=== PATIENT | male | born 1965 | race Caucasian/White ===

== ENCOUNTER 2019-09-30 10:28 | Day surgery (SDC) | payer MEDICARE, SELFPAY ==
[2019-09-29 15:05] VITALS: BMI 27.1
--- NOTE | 2019-09-30 | SCC_ITS ---
Procedure Done: Incision and debridement with removal of deep foreign body left foot. 3 seconds of fluoroscopic guidance, for a cumulative dose of 0.1 mGy, was provided to Dr. Bhatia by the radiology department. C-arm images of the LEFT toe were saved for the patient's permanent record. MAYNOR
[2019-09-30 10:46] VITALS: BP 123/77; PULSE 70; RESP 18; TEMP 36.1; O2SAT 98
[2019-09-30] MEDS: sodium chloride 0.9% 1,000 ML 100 ML IV (11:00)
--- NOTE | 2019-09-30 11:09 | P.HPUD_ITS ---
Surgery/Procedure H&P Update DATE OF PROCEDURE: September 30, 2019 DATE H&P PERFORMED: 09/29/19 H&P UPDATE INFORMATION: I have reviewed H&P completed within last 30 days, I have examined patient prior to procedure, No changes to prior documentation and H[place] is in [facility] [place] PREOP DIAGNOSIS: Open fracture with deep foreign body left foot PLANNED PROCEDURE: Operation Date: 09/30/19 13:35 Proposed Procedures p Incision And Debridement 23706 S91.342A(Left) - Robson Bhatia DPM s Foreign Body Removal Deep(Left) - Robson Bhatia DPM
--- NOTE | 2019-09-30 11:14 | ANES.PREANE2 ---
Pre-Anesthetic Assessment Pre-Anesthetic Assessment: Height/Weight: Height 1.83 m Weight 90.718 kg Temp Pulse Resp BP Pulse Ox 97 F L 70 18 123/77 98 09/30/19 10:46 09/30/19 10:46 09/30/19 10:46 09/30/19 10:46 09/30/19 10:46 Preop Diagnosis: Open fracture with deep foreign body left foot Proposed Procedure: Operation Date: 09/30/19 13:35 Proposed Procedures p Incision And Debridement 73517 S91.342A(Left) - Robson Bhatia DPM s Foreign Body Removal Deep(Left) - Robson Bhatia DPM Last intake: Intake Last Liquid Date 09/29/19 Last Liquid Time 22:00 Last Solid Date 09/29/19 Last Solid Time 22:00 Social: Social History: Alcohol and Tobacco Exam: Pre-Anes Outpt Exam: alert, oriented x 3, clear to auscultation bilaterally and regular rate & rhythm Airway: Submandibular: WNL Cervical ROM: WNL MP: 2 Dentition: Other (poor) History/ROS: No significant history except as noted Pulmonary: Pulmonary: None reported CV/HEM: CV/HEM: CAD (stent placed 1 year ago), DVT, HTN and CA : Comments: One kidney Hepatic: Hepatic: None reported GI: GI: GERD (occ) Metabolic: Metabolic: Hyperlipidemia and None reported Musc/skel: Musc/skel: None reported Neuropsych: Neuropsych: Anxiety and Depression Anesthetic Plan: ASA status: 3 Anesthesia: Anesthesia Evaluation and MAC Risk of > 500 ml blood loss (7ml/kg in children): No Meds/Allergies Current Medications: Current Medications Generic Name Dose Route Start Last Admin Trade Name Freq PRN Reason Stop Dose Admin Sodium Chloride 1,000 mls @ 100 m ls/hr 09/30/19 07:15 09/30/19 11:00 Sodium Chloride 0.9% IV 10/01/19 07:14 100 mls/hr .Q10H MIHAI Administration PFSH Anesthesia PFSH: Medical History (Updated 09/29/19 @ 15:21 by Robson Bhatia DPM) Alcohol abuse Allergic rhinitis Chronic back pain Degeneration of lumbar or lumbosacral intervertebral disc DVT (deep venous thrombosis) UCHE (generalized anxiety disorder) History of deviated nasal septum Hypertension Marijuana abuse Myocardial infarct, old Positive urine drug screen Tobacco abuse Surgical History History of back surgery History of cholecystectomy Family History (Updated 09/29/19 @ 10:46 by Katherine Mathews LPN) Other Cancer Denies family history of Diabetes Social History (Updated 09/29/19 @ 10:47 by Katherine Mathews LPN) Smoking and tobacco status: current every day smoker Household members: spouse Marital status: Current occupational status: disabled Data Anesthesia Cardiac Studies: No Data to Display
[2019-09-30 11:21] LABS: Basophils # 0.1 10^3/uL (0.0-0.1); Basophils % 1.4 %; Eosinophils # 0.3 10^3/uL (0.0-0.8); Eosinophils % 4.2 %; Hematocrit 45.9 % (42.0-52.0); Hemoglobin 14.9 g/dL (11.7-16.6); Lymphocytes # 1.4 10^3/uL (0.8-4.8); Lymphocytes % 19.9 %; Mean Corpuscular HGB Conc 32.5 g/dL (30.0-36.0); Mean Corpuscular Hemoglobin 31.6 pg (28.0-34.0); Mean Corpuscular Volume 97.5 fL (80-94); Mean Platelet Volume 11.7 fL (7.4-10.4); Monocytes # 0.8 10^3/uL (0.2-0.9); Neutrophils # 4.4 10^3/uL (1.8-7.7); Neutrophils % 63.1 %; Nucleated Red Blood Cells % 0 %; Platelet Count 203 10^3/cmm (130-400); Red Blood Count 4.71 10^6/uL (4.1-5.3); Red Cell Distribution Width 12.1 % (12.1-15.1); White Blood Count 6.9 10^3/uL (4.0-10.0)
[2019-09-30] MEDS: clindamycin 600 MG/50 ML PREMIX 100 MG IV (11:27)
[2019-09-30 11:49] LABS: Anion Gap 17.6 (5-19); Blood Urea Nitrogen 7 mg/dL (6-20); Calcium 9.5 mg/dL (8.5-10.5); Carbon Dioxide 24 mmol/L (22-29); Chloride 102 mmol/L (98-107); Glomerular Filtration Rate 69.2 mL/min (90-130); Glucose 107 mg/dL (65-115); Osmolality Calculated 284 mOsm/kg (285-295); Potassium 4.6 mmol/L (3.5-5.1); Sodium 139 mmol/L (136-145)
[2019-09-30 11:50] LABS: C Reactive Protein 14.6 mg/L (0.0-4.9)
[2019-09-30 12:05] LABS: Erythrocyte Sedimentation Rate 23 mm/hr (0-10)
--- NOTE | 2019-09-30 12:13 | P.OP_ITS ---
Operative Report Date of procedure: September 30, 2019 Pre-op Diagnosis: Open fracture with deep foreign body left foot Post-op diagnosis: same Post-op Findings: Full-thickness wound with foreign body left foot Procedure Done: Incision and debridement with removal of deep foreign body left foot. Implants: No implants Specimens removed/disposition: Foreign body consistent with copper wire removed from first metatarsal sent to microbiology for Gram stain and culture Pathology: none sent Surgeon: Robson kathleen DPDrew Consumer Services Advisor: Janiya Anesthesia: MAC Estimated blood loss: 5 mL Tourniquet time: 27 minutes IV fluids: None Urine output: None Complications: None Findings: Devitalized soft tissue down to subcutaneous layer. Foreign body consistent with copper wire implanted into the first metatarsal bone. Condition: stable Disposition: PACU Brief History: Patient was mowing his lawn on August 24 had a piece of wire that became a projectile after hitting the lumbar blade this struck his foot and punctured through his work boot and into his foot. Was seen at [facility] updated tetanus, Bactrim and hydrocodone was to be nonweightbearing given crutches. Presented to my clinic yesterday September 28 and scheduled for incision and debridement with removal foreign body. Procedure: Under mild sedation the patient was brought to the operating room and placed on the operative table in supine position. A timeout was performed. Anesthesia was administered by the anesthesia service. Local anesthesia was in jected by myself consisting of 30 cc of 0.5% Marcaine plain and a left Edgar block fashion. Well-padded pneumatic tourniquet was applied to the left ankle. Left lower extremity was scrubbed, prepped and draped utilizing normal aseptic technique. Left foot was elevated and tourniquet was inflated to 250 mmHg. Attention was directed to the dorsal aspect of the left first metatarsal phalangeal joint where a linear longitudinal incision was made medial and parallel to the extensor hallucis longus tendon. This was performed with a #15 blade approximately 4 cm in length and dissection carried down through subcutaneous tissue to the joint capsule there was some devitalized tissue appreciated this was sharply debrided and removed from the operative field. Linear capsulotomy was performed and the head of the first metatarsal was directly visualized there was a puncture wound appreciated at the 12 o'clock position approximately 3 mm inferior to the most dorsal aspect of articular surface. This was accessed utilizing trephined technique with a 4.5 K wire around the foreign body. It was then removed utilizing a needle motorcycle delivery driver and passed from operative field sent to microbiology for Gram stain and culture. The incision site was irrigated with 3 L of saline solution. No further devitalized tissue was appreciated. Bone stock appeared to be viable with appropriate density and color at the metatarsal head. Capsule was closed with 3-0 Vicryl. Skin closed with 4-0 nylon utilizing simple interrupted suture technique. Incision site was dressed with Adaptic, sterile 4 x 4's, Kerlix and Damian wrap. Postop shoe was applied. Tourniquet was deflated and a prompt hyperemic response was noted to the distal digits of the left foot. Patient tolerated the procedure well and was transferred to the PACU with vital signs stable and vascular status intact. Following a period of postoperative monitoring he will be discharged home will be given a prescription for Percocet and continue oral Bactrim may narrow or expand pending culture and sensitivity.
[2019-09-30 12:21] VITALS: BP 93/59; PULSE 60; RESP 16; TEMP 36.1; O2SAT 100
[2019-09-30 12:41] VITALS: BP 98/64; PULSE 56; RESP 16; O2SAT 5
[2019-09-30 13:02] VITALS: BP 105/72; PULSE 60; RESP 20; O2SAT 100
== END 2019-09-30 13:25 | disposition home or self-care (01) ==
PROVIDERS: PCP Family Medicine; Visit Provider Podiatrist Foot & Ankle Surgery
PROC: (CPT 11010; principal; 2019-09-30 13:25)
PROC: (CPT 11010; 2019-09-30 13:25)
DX: S91.342A Puncture wound with foreign body, left foot, initial encounter (principal); I25.10 Atherosclerotic heart disease of native coronary artery without angina pectoris; Z86.718 Personal history of other venous thrombosis and embolism; I10 Essential (primary) hypertension; I25.2 Old myocardial infarction; E78.5 Hyperlipidemia, unspecified; F17.210 Nicotine dependence, cigarettes, uncomplicated; Z79.02 Long term (current) use of antithrombotics/antiplatelets; Z79.82 Long term (current) use of aspirin
CPT/HCPCS: 11010; 12345; 36415; 76000; 80048; 85025; 85651; 86140; 87070; 87176; 87205; 96365; C1713; J2001; J2250; J2370; J2704; J3010; J3490; J7030

== ENCOUNTER 2019-10-30 10:14 | Outpatient (CLI) | payer MEDICARE, SELFPAY | END 2019-10-30 10:15 | disposition home or self-care (01) | LOC: SPT 10:17 | PROVIDERS: PCP Family Medicine; Visit Provider Podiatrist Foot & Ankle Surgery | DX: Z46.89 Encounter for fitting and adjustment of other specified devices (principal); S90.852D Superficial foreign body, left foot, subsequent encounter; X58.XXXD Exposure to other specified factors, subsequent encounter; Z98.890 Other specified postprocedural states | CPT/HCPCS: 97760; L3031 ==

== ENCOUNTER → 2019-12-11 09:40 | Outpatient (BNVA) | payer MEDICARE, SELFPAY | PROVIDERS: PCP Family Medicine; Visit Provider Podiatrist Foot & Ankle Surgery | DX: M79.672 Pain in left foot (principal); Z98.890 Other specified postprocedural states; M19.072 Primary osteoarthritis, left ankle and foot; M79.89 Other specified soft tissue disorders | CPT/HCPCS: 73630 ==